=== PATIENT | female | born 1935 | race Caucasian/White ===

== ENCOUNTER 2017-10-25 06:30 | Inpatient (IN) ==
[2017-10-25] MEDS ORDERED: SODIUM CHLORIDE 0.9% 500 ML IV STA (06:49)
[2017-10-25 07:00] LABS: Basophils % 0.4 % (0.0-0.8); Eosinophils # 0.2 10*3/uL (0.0-0.87); Eosinophils % 1.5 % (0.00-10.9); Hematocrit 32.9 VOL% (35.7-47.0); Hemoglobin 10.7 GM/DL (12.0-16.0); Immature Granulocytes % 0.6 %; Immature Granulocytes Absolute 0.06 #; Lymphocytes # 0.7 10*3/uL (1.4-4.0); Lymphocytes % 7.2 % (21.3-54.2); Mean Corpuscular HGB Conc 32.5 GM/DL (32-36); Mean Corpuscular Hemoglobin 31 PG (27-34); Mean Corpuscular Volume 95.6 FL (87-102); Mean Platelet Volume 9.9 FL (9.6-12.0); Monocytes # 0.9 10*3/uL (0.11-0.8); Neutrophils % 81.3 % (38.7-73.9); Platelet Count 242 T/CUMM (130-400); Red Blood Count 3.44 MC/CUMM (3.8-5.5); Red Cell Distribution Width 14.1 % (9.3-17.3); White Blood Count 9.8 T/CUMM (4-12)
[2017-10-25] MEDS ORDERED: ALBUTEROL 2.5 MG/3 ML NEB RESP TX STA (07:06)
[2017-10-25 07:10] LABS: PT Patient Result 10.1 SECS; Partial Thromboplastin Time 37.6 SECS (0-40)
[2017-10-25 07:19] LABS: Bilirubin,Total 0.7 MG/DL (0.2-1.0); Calcium 9.6 MG/DL (8.5-10.1); Osmolality,Calculated 289.3 MOS/KG (273-304); Potassium 3.5 MMOL/L (3.5-5.1); Total Protein 6.4 G/DL (6.4-8.3); Troponin I Only 0.042 NG/ML (0.00-0.045)
[2017-10-25 07:28] LABS: ABG Base Excess 4.2 MMOL/L (-2.5-2.5); ABG HCO3 30.2 MMOL/L (20-26); ABG Oxygen Saturation 90.1 % (95-100); ABG PH 7.382 (7.35-7.45); ABG PO2 66.7 MM HG (80-95); ABG TCO2 31.8 MMOL/L (23-27)
[2017-10-25 07:35] LABS: Apearance,Urine CLEAR (Clear); Bacteria,Urine Occasional /HPF (Few); Bilirubin,Urine Negative (Negative); Blood, Urine Small mg/dL (Negative); Glucose,Urine (UA) Negative (Negative); Hyaline Casts,Urine 3 /LPF (0-3); Ketones,Urine Negative (Negative); Mucus,Urine Occasional /LPF (Occasional); Nitrite,Urine Negative (Negative); Protein,Urine 30 MG/DL; Urine Color Yellow (Yellow); Urine Specific Gravity 1.015 (1.001-1.035); Urine Urobilinogen < 2.0 EU/DL (0.2-1.0); WBC,Urine 4 /HPF (0-6)
[2017-10-25] MEDS ORDERED: LEVOFLOXACIN INJ 500 MG in PREMIX 1 EACH IV STA (07:53)
[2017-10-25 08:08] LABS: Barbiturates Screen,Urine Negative (Negative); Benzodiazepines Screen,Urine Negative (Negative); Cannabinoid Screen,Urine Negative (Negative); Opiate Screen,Urine Positive (Negative); Phencyclidine Screen,Urine Negative (Negative)
[2017-10-25] MEDS ORDERED: LEVOFLOXACIN INJ 100 ML IV ONE (08:42)
[2017-10-25] MEDS ORDERED: ALBUTEROL 2.5 MG/3 ML NEB RESP TX PRN (09:04)
[2017-10-25] MEDS: ALBUTEROL/IPRATROPIUM 3 ML NEB RESP TX SCH ×2 (12:55→20:30)
[2017-10-25] MEDS: OLANZapine 5 MG TABLET PO SCH (21:57)
[2017-10-26] MEDS: ALBUTEROL/IPRATROPIUM 3 ML NEB RESP TX SCH ×4 (00:58→19:08)
[2017-10-26] MEDS ORDERED: amLODIPine 5 MG TABLET PO SCH (06:00)
[2017-10-26] MEDS ORDERED: THEOPHYLLINE ER 100 MG TABLET PO SCH (06:00)
[2017-10-26 06:44] LABS: Basophils % 0.5 % (0.0-0.8); Eosinophils # 0.1 10*3/uL (0.0-0.87); Eosinophils % 1.5 % (0.00-10.9); Hematocrit 35.6 VOL% (35.7-47.0); Hemoglobin 12.1 GM/DL (12.0-16.0); Immature Granulocytes % 1.1 %; Immature Granulocytes Absolute 0.08 #; Lymphocytes # 1.4 10*3/uL (1.4-4.0); Lymphocytes % 19.2 % (21.3-54.2); Mean Corpuscular Hemoglobin 31 PG (27-34); Mean Corpuscular Volume 90.8 FL (87-102); Mean Platelet Volume 10.1 FL (9.6-12.0); Monocytes # 0.9 10*3/uL (0.11-0.8); Monocytes % 12.3 % (1.7-12.7); Neutrophils # 4.8 10*3/uL (1.4-7.4); Neutrophils % 65.4 % (38.7-73.9); Platelet Count 308 T/CUMM (130-400); Red Blood Count 3.92 MC/CUMM (3.8-5.5); Red Cell Distribution Width 14.1 % (9.3-17.3); White Blood Count 7.4 T/CUMM (4-12)
[2017-10-26] MEDS: THEOPHYLLINE ER (24 HR) 400 MG TABLET PO SCH (06:46)
[2017-10-26] MEDS: ASPIRIN EC 81 MG TABLET PO SCH (06:46)
[2017-10-26] MEDS: DOCUSATE SODIUM 100 MG CAPSULE PO SCH (06:46)
[2017-10-26] MEDS ORDERED: NITROGLYCERIN SL 0.4 MG TABLET SL PRN (07:07)
[2017-10-26] MEDS ORDERED: ASPIRIN CHEW 81 MG TABLET PO ONE ×2 (07:07→07:10)
[2017-10-26 07:13] LABS: Bilirubin,Total 0.9 MG/DL (0.2-1.0); Calcium 9.8 MG/DL (8.5-10.1); Potassium 3.1 MMOL/L (3.5-5.1); Total Protein 5.7 G/DL (6.4-8.3)
[2017-10-26] MEDS ORDERED: POTASSIUM CHLORIDE 20 MEQ TABLET PO ONE (07:34)
[2017-10-26 08:05] LABS: Basophils # 0.1 10*3/uL (0.0-0.2); Basophils % 0.6 % (0.0-0.8); Eosinophils # 0.1 10*3/uL (0.0-0.87); Eosinophils % 1.1 % (0.00-10.9); Hematocrit 35.1 VOL% (35.7-47.0); Hemoglobin 11.7 GM/DL (12.0-16.0); Immature Granulocytes % 1.1 %; Immature Granulocytes Absolute 0.09 #; Lymphocytes # 1.2 10*3/uL (1.4-4.0); Lymphocytes % 14.4 % (21.3-54.2); Mean Corpuscular HGB Conc 33.3 GM/DL (32-36); Mean Corpuscular Hemoglobin 31 PG (27-34); Mean Corpuscular Volume 93.1 FL (87-102); Mean Platelet Volume 10.3 FL (9.6-12.0); Monocytes # 0.9 10*3/uL (0.11-0.8); Monocytes % 11.2 % (1.7-12.7); Neutrophils # 5.7 10*3/uL (1.4-7.4); Neutrophils % 71.6 % (38.7-73.9); Platelet Count 307 T/CUMM (130-400); Red Blood Count 3.77 MC/CUMM (3.8-5.5); Red Cell Distribution Width 14.2 % (9.3-17.3)
[2017-10-26] MEDS ORDERED: NIFEdipine 10 MG CAPSULE PO PRN (08:05)
[2017-10-26 08:57] LABS: Bilirubin,Total 0.5 MG/DL (0.2-1.0); Calcium 9.9 MG/DL (8.5-10.1)
[2017-10-26 08:58] LABS: Troponin I Only 0.079 NG/ML (0.00-0.045)
[2017-10-26] MEDS ORDERED: DIGOXIN 0.125 MG TABLET PO SCH (09:00)
[2017-10-26] MEDS: ALUMINUM/MAGNES/SIMETH MAX STR 30 ML UDCUP PO SCH ×4 (09:21→20:41)
[2017-10-26] MEDS: LEVOFLOXACIN INJ 500 MG in PREMIX 1 EACH IV SCH (09:21)
[2017-10-26] MEDS: LISINOPRIL 20 MG TABLET PO SCH ×2 (09:26→09:45)
[2017-10-26] MEDS: NITROGLYCERIN 2% OINT 1 INCH/GM PACK TOP SCH ×3 (09:26→20:40)
[2017-10-26] MEDS: PANTOPRAZOLE 40 MG TABLET PO SCH (09:27)
[2017-10-26] MEDS: CARVEDILOL 25 MG TABLET PO SCH ×2 (09:27→22:40)
[2017-10-26] MEDS: POTASSIUM CHLORIDE 20 MEQ TABLET PO SCH ×3 (09:28→16:20)
[2017-10-26] MEDS ORDERED: amLODIPine 10 MG TABLET PO SCH (12:10)
[2017-10-26] MEDS: OLANZapine 5 MG TABLET PO SCH (22:40)
[2017-10-26] MEDS ORDERED: ALUMINUM/MAGNES/SIMETH MAX STR 30 ML UDCUP PO SCH (23:00)
[2017-10-27] MEDS: ALBUTEROL/IPRATROPIUM 3 ML NEB RESP TX SCH ×3 (00:34→13:44)
[2017-10-27] MEDS: NITROGLYCERIN 2% OINT 1 INCH/GM PACK TOP SCH ×3 (02:14→14:39)
[2017-10-27 06:00] LABS: Basophils # 0.1 10*3/uL (0.0-0.2); Basophils % 0.8 % (0.0-0.8); Eosinophils # 0.2 10*3/uL (0.0-0.87); Eosinophils % 3.2 % (0.00-10.9); Hemoglobin 10.8 GM/DL (12.0-16.0); Immature Granulocytes % 1.1 %; Immature Granulocytes Absolute 0.07 #; Lymphocytes # 1.5 10*3/uL (1.4-4.0); Lymphocytes % 24.1 % (21.3-54.2); Mean Corpuscular HGB Conc 33.8 GM/DL (32-36); Mean Corpuscular Hemoglobin 31 PG (27-34); Mean Platelet Volume 10.2 FL (9.6-12.0); Monocytes # 0.7 10*3/uL (0.11-0.8); Monocytes % 11.5 % (1.7-12.7); Neutrophils # 3.7 10*3/uL (1.4-7.4); Neutrophils % 59.3 % (38.7-73.9); Platelet Count 289 T/CUMM (130-400); Red Blood Count 3.48 MC/CUMM (3.8-5.5); Red Cell Distribution Width 14.3 % (9.3-17.3); White Blood Count 6.3 T/CUMM (4-12)
[2017-10-27 06:35] LABS: Calcium 9.8 MG/DL (8.5-10.1); Osmolality,Calculated 288.7 MOS/KG (273-304)
[2017-10-27] MEDS: LISINOPRIL 20 MG TABLET PO SCH (07:05)
[2017-10-27] MEDS: ASPIRIN EC 81 MG TABLET PO SCH (07:06)
[2017-10-27] MEDS: DOCUSATE SODIUM 100 MG CAPSULE PO SCH (07:06)
[2017-10-27] MEDS: THEOPHYLLINE ER (24 HR) 400 MG TABLET PO SCH (07:06)
[2017-10-27] MEDS: PANTOPRAZOLE 40 MG TABLET PO SCH (10:00)
[2017-10-27] MEDS: CARVEDILOL 25 MG TABLET PO SCH (10:00)
[2017-10-27] MEDS: LEVOFLOXACIN INJ 500 MG in PREMIX 1 EACH IV SCH (10:00)
[2017-10-27 12:54] VITALS: BP 105/68
[2017-10-27] MEDS ORDERED: SULFAMETHOX/TRIMETHOPRIM 800-160 MG TABLET PO SCH (21:00)
== END 2017-10-27 15:56 | DRG 948 ==
LOC: EDUNIT# → EDBD → N.ED 06:30 → N.EDINP 08:12 → N.5E 14:48
PROVIDERS: ADMIT Internal Medicine; ATTEND Internal Medicine

== ENCOUNTER 2018-01-10 00:12 | Inpatient (IN) ==
[2018-01-10 02:34] LABS: Basophils # 0.1 10*3/uL (0.0-0.2); Basophils % 0.5 % (0.0-0.8); Eosinophils # 0.2 10*3/uL (0.0-0.87); Eosinophils % 1.4 % (0.00-10.9); Hematocrit 37.3 VOL% (35.7-47.0); Hemoglobin 11.8 GM/DL (12.0-16.0); Immature Granulocytes % 0.6 %; Immature Granulocytes Absolute 0.07 #; Lymphocytes # 1.1 10*3/uL (1.4-4.0); Lymphocytes % 8.8 % (21.3-54.2); Mean Corpuscular HGB Conc 31.6 GM/DL (32-36); Mean Corpuscular Hemoglobin 31 PG (27-34); Mean Corpuscular Volume 97.1 FL (87-102); Mean Platelet Volume 11.3 FL (9.6-12.0); Monocytes # 1.1 10*3/uL (0.11-0.8); Monocytes % 8.4 % (1.7-12.7); Neutrophils % 80.3 % (38.7-73.9); Platelet Count 183 T/CUMM (130-400); Red Blood Count 3.84 MC/CUMM (3.8-5.5); Red Cell Distribution Width 14.3 % (9.3-17.3); White Blood Count 12.5 T/CUMM (4-12)
[2018-01-10 02:44] LABS: Albumin 3.5 G/DL (3.4-5.0); Bilirubin,Total 0.5 MG/DL (0.2-1.0); Calcium 9.6 MG/DL (8.5-10.1); Osmolality,Calculated 287.1 MOS/KG (273-304); Potassium 3.6 MMOL/L (3.5-5.1); Total Protein 6.5 G/DL (6.4-8.3)
[2018-01-10] MEDS ORDERED: ACETAMINOPHEN 325 MG TABLET PO PRN (04:30)
[2018-01-10] MEDS ORDERED: ONDANSETRON 4 MG/2 ML VIAL IV PRN (04:30)
[2018-01-10 04:32] LABS: Apearance,Urine CLEAR (Clear); Bacteria,Urine Few /HPF (Few); Bilirubin,Urine Negative (Negative); Blood, Urine Negative (Negative); Glucose,Urine (UA) Negative (Negative); Ketones,Urine Negative (Negative); Nitrite,Urine Negative (Negative); Protein,Urine 100 MG/DL; Urine Color Yellow (Yellow); Urine Specific Gravity 1.014 (1.001-1.035); Urine Urobilinogen < 2.0 EU/DL (0.2-1.0); WBC,Urine 17 /HPF (0-6)
[2018-01-10] MEDS ORDERED: ALBUTEROL/IPRATROPIUM 3 ML NEB RESP TX PRN (04:32)
[2018-01-10] MEDS: SODIUM CHLORIDE 0.9% 1,000 ML IV SCH (06:10)
[2018-01-10] MEDS: LEVOFLOXACIN INJ 750 MG in PREMIX 1 EACH IV SCH (06:15)
[2018-01-10] MEDS: methylPREDNISolone SOD SUC 40 MG/1 ML VIAL IV SCH ×2 (09:55→16:37)
[2018-01-10] MEDS: PANTOPRAZOLE 40 MG TABLET PO SCH (09:56)
[2018-01-10] MEDS: THEOPHYLLINE ER (24 HR) 400 MG TABLET PO SCH (09:56)
[2018-01-10] MEDS: amLODIPine 10 MG TABLET PO SCH (09:56)
[2018-01-10] MEDS: CARVEDILOL 25 MG TABLET PO SCH ×2 (09:56→21:47)
[2018-01-10] MEDS: OXYBUTYNIN XL 5 MG TABLET PO SCH (09:56)
[2018-01-10] MEDS: ASPIRIN EC 81 MG TABLET PO SCH (09:56)
[2018-01-10] MEDS: DULoxetine 30 MG CAPSULE PO SCH ×2 (09:56→21:46)
[2018-01-10] MEDS: ENOXAPARIN 40 MG/0.4 ML SYRINGE SUBCUT SCH (09:57)
[2018-01-10] MEDS: SIMVASTATIN 20 MG TABLET PO SCH (09:57)
[2018-01-10] MEDS: DIGOXIN 0.125 MG TABLET PO SCH (13:33)
[2018-01-10] MEDS: OLANZapine 5 MG TABLET PO SCH (21:48)
[2018-01-11] MEDS: methylPREDNISolone SOD SUC 40 MG/1 ML VIAL IV SCH ×3 (00:17→17:39)
[2018-01-11] MEDS: SODIUM CHLORIDE 0.9% 1,000 ML IV SCH (03:15)
[2018-01-11] MEDS: LEVOFLOXACIN INJ 750 MG in PREMIX 1 EACH IV SCH (05:28)
[2018-01-11 06:28] LABS: Basophils % 0.1 % (0.0-0.8); Hematocrit 33.1 VOL% (35.7-47.0); Hemoglobin 11.1 GM/DL (12.0-16.0); Immature Granulocytes % 1.1 %; Lymphocytes # 0.7 10*3/uL (1.4-4.0); Mean Corpuscular HGB Conc 33.5 GM/DL (32-36); Mean Corpuscular Hemoglobin 32 PG (27-34); Mean Platelet Volume 10.6 FL (9.6-12.0); Monocytes # 0.2 10*3/uL (0.11-0.8); Monocytes % 2.4 % (1.7-12.7); Neutrophils # 7.9 10*3/uL (1.4-7.4); Neutrophils % 88.4 % (38.7-73.9); Platelet Count 199 T/CUMM (130-400); Red Blood Count 3.52 MC/CUMM (3.8-5.5)
[2018-01-11 06:51] LABS: Calcium 9.3 MG/DL (8.5-10.1); Potassium 3.6 MMOL/L (3.5-5.1)
[2018-01-11] MEDS: ENOXAPARIN 40 MG/0.4 ML SYRINGE SUBCUT SCH (10:50)
[2018-01-11] MEDS: OXYBUTYNIN XL 5 MG TABLET PO SCH (10:51)
[2018-01-11] MEDS: THEOPHYLLINE ER (24 HR) 400 MG TABLET PO SCH (10:51)
[2018-01-11] MEDS: DULoxetine 30 MG CAPSULE PO SCH ×2 (10:51→20:38)
[2018-01-11] MEDS: PANTOPRAZOLE 40 MG TABLET PO SCH (10:52)
[2018-01-11] MEDS: SIMVASTATIN 20 MG TABLET PO SCH (10:52)
[2018-01-11] MEDS: CARVEDILOL 25 MG TABLET PO SCH ×2 (10:52→20:38)
[2018-01-11] MEDS: ASPIRIN EC 81 MG TABLET PO SCH (10:52)
[2018-01-11] MEDS: amLODIPine 10 MG TABLET PO SCH (10:52)
[2018-01-11] MEDS: DIGOXIN 0.125 MG TABLET PO SCH (14:51)
[2018-01-11] MEDS: OLANZapine 5 MG TABLET PO SCH (20:38)
[2018-01-12] MEDS: methylPREDNISolone SOD SUC 40 MG/1 ML VIAL IV SCH ×3 (00:53→21:51)
[2018-01-12] MEDS: LEVOFLOXACIN INJ 750 MG in PREMIX 1 EACH IV SCH (05:42)
[2018-01-12] MEDS: SODIUM CHLORIDE 0.9% 1,000 ML IV SCH ×2 (10:41→16:52)
[2018-01-12] MEDS: CARVEDILOL 25 MG TABLET PO SCH ×2 (10:42→21:50)
[2018-01-12] MEDS: THEOPHYLLINE ER (24 HR) 400 MG TABLET PO SCH (10:43)
[2018-01-12] MEDS: ASPIRIN EC 81 MG TABLET PO SCH (10:43)
[2018-01-12] MEDS: PANTOPRAZOLE 40 MG TABLET PO SCH (10:43)
[2018-01-12] MEDS: DULoxetine 30 MG CAPSULE PO SCH ×2 (10:43→21:50)
[2018-01-12] MEDS: OXYBUTYNIN XL 5 MG TABLET PO SCH (10:44)
[2018-01-12] MEDS: ENOXAPARIN 40 MG/0.4 ML SYRINGE SUBCUT SCH (10:44)
[2018-01-12] MEDS: amLODIPine 10 MG TABLET PO SCH (10:44)
[2018-01-12] MEDS: SIMVASTATIN 20 MG TABLET PO SCH (10:44)
[2018-01-12] MEDS: cefTRIAXone 1,000 MG in SYRINGE 1 EACH IV SCH (10:50)
[2018-01-12] MEDS: DIGOXIN 0.125 MG TABLET PO SCH (14:03)
[2018-01-12] MEDS ORDERED: LORazepam 2 MG/1 ML VIAL IV PRN ×2 (14:05)
[2018-01-12] MEDS ORDERED: ZIPRASIDONE 20 MG/1 ML VIAL IM PRN (15:14)
[2018-01-12] MEDS: OLANZapine 5 MG TABLET PO SCH (21:50)
[2018-01-13] MEDS: methylPREDNISolone SOD SUC 40 MG/1 ML VIAL IV SCH (05:52)
[2018-01-13] MEDS: OXYBUTYNIN XL 5 MG TABLET PO SCH (09:24)
[2018-01-13] MEDS: THEOPHYLLINE ER (24 HR) 400 MG TABLET PO SCH (09:24)
[2018-01-13] MEDS: DULoxetine 30 MG CAPSULE PO SCH (09:24)
[2018-01-13] MEDS: SIMVASTATIN 20 MG TABLET PO SCH (09:25)
[2018-01-13] MEDS: cefTRIAXone 1,000 MG in SYRINGE 1 EACH IV SCH (09:25)
[2018-01-13] MEDS: amLODIPine 10 MG TABLET PO SCH (09:25)
[2018-01-13] MEDS: ASPIRIN EC 81 MG TABLET PO SCH (09:25)
[2018-01-13] MEDS: CARVEDILOL 25 MG TABLET PO SCH (09:25)
[2018-01-13] MEDS: PANTOPRAZOLE 40 MG TABLET PO SCH (09:25)
[2018-01-13] MEDS: ENOXAPARIN 40 MG/0.4 ML SYRINGE SUBCUT SCH (09:25)
[2018-01-13] MEDS ORDERED: fentaNYL 12 MCG/HR PATCH TRANSDERM SCH (10:30)
[2018-01-13 11:08] VITALS: BP 125/58
== END 2018-01-13 11:00 | DRG 194 ==
LOC: EDBD → EDUNIT# → N.ED 00:12 → N.EDINP 04:30 → N.5E 05:15

== ENCOUNTER 2018-07-24 01:49 | Inpatient (IN) ==
[2018-07-24] MEDS ORDERED: CEFEPIME 2,000 MG in SODIUM CHLORIDE 0.9% 100 ML IV STA (01:58)
[2018-07-24] MEDS ORDERED: VANCOMYCIN INJ 1,000 MG in SODIUM CHLORIDE 0.9% 250 ML IV STA (01:59)
[2018-07-24 02:18] LABS: Basophils # 0.1 10*3/uL (0.0-0.2); Basophils % 0.9 % (0.0-0.8); Hematocrit 35.1 VOL% (35.7-47.0); Hemoglobin 11.3 GM/DL (12.0-16.0); Immature Granulocytes % 2.1 %; Immature Granulocytes Absolute 0.32 #; Lymphocytes # 0.9 10*3/uL (1.4-4.0); Lymphocytes % 6.1 % (21.3-54.2); Mean Corpuscular HGB Conc 32.2 GM/DL (32-36); Mean Corpuscular Hemoglobin 31 PG (27-34); Mean Corpuscular Volume 97.2 FL (87-102); Mean Platelet Volume 9.3 FL (9.6-12.0); Monocytes # 0.5 10*3/uL (0.11-0.8); Monocytes % 3.1 % (1.7-12.7); NRBC # 0.05 10*3/uL; Neutrophils # 13.2 10*3/uL (1.4-7.4); Neutrophils % 87.8 % (38.7-73.9); Platelet Count 242 T/CUMM (130-400); Red Blood Count 3.61 MC/CUMM (3.8-5.5); Red Cell Distribution Width 15.7 % (9.3-17.3)
[2018-07-24] MEDS ORDERED: SODIUM CHLORIDE 0.9% 100 ML IV ONE (02:25)
[2018-07-24] MEDS ORDERED: CEFEPIME 1,000 MG VIAL ONE (02:25)
[2018-07-24] MEDS ORDERED: CEFEPIME 2,000 MG VIAL ONE (02:26)
[2018-07-24] MEDS ORDERED: SODIUM CHLORIDE 0.9% 1,000 ML IV STA (02:29)
[2018-07-24 02:42] LABS: Lactic Acid 1.7 MMOL/L (0.4-2.0)
[2018-07-24 02:46] LABS: Bilirubin,Total 0.7 MG/DL (0.2-1.0); Calcium 9.2 MG/DL (8.5-10.1); Osmolality,Calculated 296.3 MOS/KG (273-304); Potassium 4.3 MMOL/L (3.5-5.1); Total Protein 5.9 G/DL (6.4-8.3)
[2018-07-24 02:58] LABS: Band Neutrophils 12 % (0-10); Lymphocytes 9 % (20-55); Metamyelocytes 5 %; Segmented Neutrophils 69 % (50-85)
[2018-07-24 02:59] LABS: Platelet Estimate Normal
[2018-07-24 03:00] LABS: Total Cells Counted 100
[2018-07-24 03:03] LABS: Apearance,Urine Slightly Hazy (Clear); Bacteria,Urine Many /HPF (Few); Bilirubin,Urine Negative (Negative); Blood, Urine Small mg/dL (Negative); Glucose,Urine (UA) Negative (Negative); Ketones,Urine Negative (Negative); Nitrite,Urine Positive (Negative); Protein,Urine 100 MG/DL; RBC,Urine 3 /HPF (0-4); Squamous Epithelial Cell,Urine Occasional /HPF (0-10); Urine Color Yellow (Yellow); Urine Specific Gravity 1.021 (1.001-1.035); Urine Urobilinogen < 2.0 EU/DL (0.2-1.0); WBC,Urine 77 /HPF (0-6)
[2018-07-24] MEDS ORDERED: NOREPINEPHRINE 8 MG in SODIUM CHLORIDE 0.9% 242 ML IV PRN (03:33)
[2018-07-24] MEDS ORDERED: ONDANSETRON 4 MG/2 ML VIAL IV PRN (05:21)
[2018-07-24] MEDS ORDERED: ALBUTEROL 2.5 MG/3 ML NEB RESP TX PRN (05:21)
[2018-07-24] MEDS ORDERED: AZITHROMYCIN INJ 500 MG in SODIUM CHLORIDE 0.9% 250 ML IV SCH (05:30)
[2018-07-24 05:45] LABS: ABG Base Excess -1.8 MMOL/L (-2.5-2.5); ABG HCO3 22.8 MMOL/L (20-26); ABG Oxygen Saturation 94.9 % (95-100); ABG PCO2 52.6 MM HG (35-48); ABG PH 7.293 (7.35-7.45); ABG PO2 83.1 MM HG (80-95); Allen Test Positive
[2018-07-24] MEDS ORDERED: MORPHINE 4 MG/1 ML VIAL IV ONE (06:22)
[2018-07-24] MEDS ORDERED: MORPHINE 4 MG/1 ML VIAL ONE (06:25)
[2018-07-24] MEDS: SODIUM CHLORIDE 0.9% 1,000 ML IV SCH ×2 (06:29→23:43)
[2018-07-24] MEDS ORDERED: LEVOFLOXACIN INJ 750 MG in PREMIX 1 EACH IV SCH (06:30)
[2018-07-24] MEDS ORDERED: NOREPINEPHRINE 4 MG/4 ML VIAL IV ONE (06:34)
[2018-07-24] MEDS: ALBUTEROL/IPRATROPIUM 3 ML NEB RESP TX SCH ×3 (06:40→19:23)
[2018-07-24] MEDS: ENOXAPARIN 30 MG/0.3 ML SYRINGE SUBCUT SCH (06:41)
[2018-07-24] MEDS ORDERED: MORPHINE 4 MG/1 ML VIAL IV PRN (08:23)
[2018-07-24] MEDS: fentaNYL 12 MCG/HR PATCH TRANSDERM SCH (09:21)
[2018-07-24] MEDS: DIGOXIN 0.125 MG TABLET PO SCH (09:21)
[2018-07-24] MEDS: OXcarbazepine 300 MG TABLET PO SCH ×2 (09:22→21:31)
[2018-07-24] MEDS: PIPERACILLIN/TAZOBACTAM 3,375 MG in SODIUM CHLORIDE 0.9% 100 ML IV SCH ×2 (09:22→17:23)
[2018-07-24] MEDS: LORazepam 2 MG/1 ML VIAL IV PRN ×3 (12:27→23:18)
[2018-07-24] MEDS: methylPREDNISolone SOD SUC 125 MG/2 ML VIAL IV SCH ×2 (12:36→21:54)
[2018-07-24] MEDS: traZODone 50 MG TABLET PO SCH (21:31)
[2018-07-24] MEDS: OLANZapine 5 MG TABLET PO SCH (21:32)
[2018-07-24] MEDS: MORPHINE 4 MG/1 ML VIAL IV PRN (22:43)
[2018-07-24] MEDS ORDERED: HALOPERIDOL 5 MG/ML AMP IM PRN (23:41)
[2018-07-25] MEDS: ALBUTEROL/IPRATROPIUM 3 ML NEB RESP TX SCH ×4 (01:34→19:07)
[2018-07-25] MEDS: PIPERACILLIN/TAZOBACTAM 3,375 MG in SODIUM CHLORIDE 0.9% 100 ML IV SCH ×3 (01:47→16:34)
[2018-07-25 03:50] LABS: Allen Test Positive; Pt O2 Delivery Device BIPAP
[2018-07-25 03:52] LABS: ABG Base Excess -3.8 MMOL/L (-2.5-2.5); ABG HCO3 21.2 MMOL/L (20-26); ABG Oxygen Saturation 96.8 % (95-100); ABG PCO2 39.2 MM HG (35-48); ABG PH 7.347 (7.35-7.45); ABG PO2 95.4 MM HG (80-95)
[2018-07-25] MEDS: MORPHINE 4 MG/1 ML VIAL IV PRN ×4 (04:20→20:13)
[2018-07-25 04:37] LABS: Basophils % 0.1 % (0.0-0.8); Hematocrit 39.4 VOL% (35.7-47.0); Hemoglobin 12.6 GM/DL (12.0-16.0); Immature Granulocytes % 11.9 %; Immature Granulocytes Absolute 2.34 #; Lymphocytes # 1.4 10*3/uL (1.4-4.0); Lymphocytes % 7.1 % (21.3-54.2); Mean Corpuscular Hemoglobin 31 PG (27-34); Mean Corpuscular Volume 96.6 FL (87-102); Mean Platelet Volume 9.6 FL (9.6-12.0); Monocytes # 0.5 10*3/uL (0.11-0.8); Monocytes % 2.5 % (1.7-12.7); NRBC # 0.06 10*3/uL; Neutrophils # 15.5 10*3/uL (1.4-7.4); Neutrophils % 78.4 % (38.7-73.9); Platelet Count 292 T/CUMM (130-400); Red Blood Count 4.08 MC/CUMM (3.8-5.5); Red Cell Distribution Width 16.3 % (9.3-17.3); White Blood Count 19.7 T/CUMM (4-12)
[2018-07-25 04:49] LABS: Calcium 9.5 MG/DL (8.5-10.1); Osmolality,Calculated 307.6 MOS/KG (273-304)
[2018-07-25 06:19] LABS: Band Neutrophils 7 % (0-10); Lymphocytes 9 % (20-55); Myelocytes 1 %; Segmented Neutrophils 77 % (50-85); Total Cells Counted 100
[2018-07-25 06:20] LABS: Anisocytosis 1+
[2018-07-25 06:21] LABS: Ovalocytes Few; Platelet Estimate Adequate
[2018-07-25] MEDS: methylPREDNISolone SOD SUC 125 MG/2 ML VIAL IV SCH ×3 (06:29→22:43)
[2018-07-25] MEDS: ENOXAPARIN 30 MG/0.3 ML SYRINGE SUBCUT SCH (06:29)
[2018-07-25] MEDS: DIGOXIN 0.125 MG TABLET PO SCH (08:43)
[2018-07-25] MEDS: OXcarbazepine 300 MG TABLET PO SCH ×2 (08:43→20:15)
[2018-07-25] MEDS ORDERED: cefTRIAXone 1,000 MG in SYRINGE 1 EACH IV SCH (09:30)
[2018-07-25] MEDS: SODIUM CHLORIDE 0.9% 1,000 ML IV SCH (15:00)
[2018-07-25] MEDS ORDERED: LABETALOL 20 MG/4 ML SYRINGE IV ONE (15:35)
[2018-07-25] MEDS: SODIUM CHLORIDE 0.45% 1,000 ML IV SCH (17:16)
[2018-07-25] MEDS ORDERED: CARVEDILOL 3.125 MG TABLET ONE (19:40)
[2018-07-25] MEDS: CARVEDILOL 6.25 MG TABLET PO SCH (19:45)
[2018-07-25] MEDS: OLANZapine 5 MG TABLET PO SCH (20:14)
[2018-07-25] MEDS: traZODone 50 MG TABLET PO SCH (20:15)
[2018-07-25] MEDS: DOCUSATE SODIUM 100 MG CAPSULE PO PRN (20:15)
[2018-07-25] MEDS: ACETAMINOPHEN 325 MG TABLET PO PRN (20:41)
[2018-07-25] MEDS: LABETALOL 20 MG/4 ML SYRINGE IV PRN (20:44)
[2018-07-25] MEDS ORDERED: CARVEDILOL 6.25 MG TABLET PO SCH (21:00)
[2018-07-26] MEDS: PIPERACILLIN/TAZOBACTAM 3,375 MG in SODIUM CHLORIDE 0.9% 100 ML IV SCH ×2 (00:36→09:30)
[2018-07-26] MEDS: ALBUTEROL/IPRATROPIUM 3 ML NEB RESP TX SCH ×4 (00:45→19:50)
[2018-07-26 04:34] LABS: ABG Base Excess 0.3 MMOL/L (-2.5-2.5); ABG HCO3 24.6 MMOL/L (20-26); ABG Oxygen Saturation 93.6 % (95-100); ABG PCO2 44.8 MM HG (35-48); ABG PH 7.369 (7.35-7.45); ABG PO2 73.7 MM HG (80-95); ABG TCO2 23.1 MMOL/L (23-27); Allen Test Positive
[2018-07-26 05:26] LABS: Hemoglobin 11.6 GM/DL (12.0-16.0); Immature Granulocytes % 24.2 %; Immature Granulocytes Absolute 3.18 #; Lymphocytes # 1.3 10*3/uL (1.4-4.0); Lymphocytes % 9.9 % (21.3-54.2); Mean Corpuscular HGB Conc 32.2 GM/DL (32-36); Mean Corpuscular Hemoglobin 31 PG (27-34); Mean Corpuscular Volume 95.2 FL (87-102); Mean Platelet Volume 9.7 FL (9.6-12.0); Monocytes # 0.4 10*3/uL (0.11-0.8); Monocytes % 2.9 % (1.7-12.7); NRBC # 0.06 10*3/uL; Neutrophils # 8.3 10*3/uL (1.4-7.4); Platelet Count 222 T/CUMM (130-400); Red Blood Count 3.78 MC/CUMM (3.8-5.5); Red Cell Distribution Width 16.4 % (9.3-17.3); White Blood Count 13.2 T/CUMM (4-12)
[2018-07-26 05:57] LABS: Osmolality,Calculated 320.6 MOS/KG (273-304); Potassium 3.7 MMOL/L (3.5-5.1)
[2018-07-26] MEDS ORDERED: VANCOMYCIN INJ 750 MG in SODIUM CHLORIDE 0.9% 250 ML IV SCH (06:00)
[2018-07-26 06:18] LABS: Atypical Lymphocytes Few; Hypochromasia Slight; Lymphocytes 22 % (20-55); Platelet Estimate Adequate; Segmented Neutrophils 73 % (50-85); Total Cells Counted 100
[2018-07-26] MEDS: ENOXAPARIN 30 MG/0.3 ML SYRINGE SUBCUT SCH (06:25)
[2018-07-26] MEDS: methylPREDNISolone SOD SUC 125 MG/2 ML VIAL IV SCH (06:25)
[2018-07-26] MEDS: SODIUM CHLORIDE 0.45% 1,000 ML IV SCH (06:39)
[2018-07-26] MEDS: DIGOXIN 0.125 MG TABLET PO SCH (09:29)
[2018-07-26] MEDS: OXcarbazepine 300 MG TABLET PO SCH ×2 (09:29→21:01)
[2018-07-26] MEDS: CARVEDILOL 6.25 MG TABLET PO SCH (09:30)
[2018-07-26] MEDS: DEXTROSE 5% 1,000 ML IV SCH (11:03)
[2018-07-26] MEDS: MEROPENEM 500 MG in SODIUM CHLORIDE 0.9% 100 ML IV SCH ×2 (11:03→18:00)
[2018-07-26] MEDS: MORPHINE 4 MG/1 ML VIAL IV PRN ×4 (12:28→21:03)
[2018-07-26] MEDS: methylPREDNISolone SOD SUC 40 MG/1 ML VIAL IV SCH ×2 (13:47→21:01)
[2018-07-26] MEDS: LABETALOL 20 MG/4 ML SYRINGE IV PRN (14:12)
[2018-07-26] MEDS ORDERED: CARVEDILOL 6.25 MG TABLET PO ONE (14:51)
[2018-07-26] MEDS: amLODIPine 10 MG TABLET PO SCH (16:07)
[2018-07-26] MEDS: CARVEDILOL 12.5 MG TABLET PO SCH (21:01)
[2018-07-26] MEDS: traZODone 50 MG TABLET PO SCH (21:01)
[2018-07-26] MEDS: OLANZapine 5 MG TABLET PO SCH (21:01)
[2018-07-27] MEDS: DEXTROSE 5% 1,000 ML IV SCH ×3 (00:48→20:03)
[2018-07-27] MEDS: ALBUTEROL/IPRATROPIUM 3 ML NEB RESP TX SCH ×4 (01:00→19:32)
[2018-07-27] MEDS: MEROPENEM 500 MG in SODIUM CHLORIDE 0.9% 100 ML IV SCH ×3 (02:05→18:00)
[2018-07-27 03:26] LABS: ABG Base Excess 6.2 MMOL/L (-2.5-2.5); ABG Oxygen Saturation 96.6 % (95-100); ABG PH 7.402 (7.35-7.45); ABG PO2 92.2 MM HG (80-95); ABG TCO2 28.6 MMOL/L (23-27); Allen Test Positive
[2018-07-27] MEDS: MORPHINE 4 MG/1 ML VIAL IV PRN ×2 (05:25→09:27)
[2018-07-27] MEDS: methylPREDNISolone SOD SUC 40 MG/1 ML VIAL IV SCH (05:31)
[2018-07-27] MEDS: ENOXAPARIN 30 MG/0.3 ML SYRINGE SUBCUT SCH (05:32)
[2018-07-27 05:52] LABS: Calcium 10.1 MG/DL (8.5-10.1); Osmolality,Calculated 305.4 MOS/KG (273-304); Potassium 3.3 MMOL/L (3.5-5.1)
[2018-07-27 06:09] LABS: Basophils % 0.1 % (0.0-0.8); Hemoglobin 12.3 GM/DL (12.0-16.0); Immature Granulocytes % 16.3 %; Immature Granulocytes Absolute 2.15 #; Lymphocytes # 1.4 10*3/uL (1.4-4.0); Lymphocytes % 10.6 % (21.3-54.2); Mean Corpuscular HGB Conc 32.4 GM/DL (32-36); Mean Corpuscular Hemoglobin 31 PG (27-34); Mean Corpuscular Volume 95.5 FL (87-102); Mean Platelet Volume 9.9 FL (9.6-12.0); Monocytes # 0.4 10*3/uL (0.11-0.8); Monocytes % 2.7 % (1.7-12.7); NRBC # 0.04 10*3/uL; Neutrophils # 9.3 10*3/uL (1.4-7.4); Neutrophils % 70.3 % (38.7-73.9); Platelet Count 181 T/CUMM (130-400); Red Blood Count 3.98 MC/CUMM (3.8-5.5); Red Cell Distribution Width 16.4 % (9.3-17.3); White Blood Count 13.2 T/CUMM (4-12)
[2018-07-27 06:12] LABS: Band Neutrophils 5 % (0-10); Lymphocytes 13 % (20-55); Myelocytes 1 %; Nucleated Red Blood Cells 2 (0-5); Segmented Neutrophils 74 % (50-85); Total Cells Counted 100
[2018-07-27 06:14] LABS: Anisocytosis 1+; Hypochromasia 1+; Platelet Estimate Adequate; Target Cells 2+
[2018-07-27] MEDS ORDERED: POTASSIUM CHLORIDE 20 MEQ/15 ML UDCUP PO ONE (08:30)
[2018-07-27] MEDS: OXcarbazepine 300 MG TABLET PO SCH ×2 (09:04→22:58)
[2018-07-27] MEDS: fentaNYL 12 MCG/HR PATCH TRANSDERM SCH (09:04)
[2018-07-27] MEDS: amLODIPine 10 MG TABLET PO SCH (09:04)
[2018-07-27] MEDS: DIGOXIN 0.125 MG TABLET PO SCH (09:05)
[2018-07-27] MEDS: CARVEDILOL 12.5 MG TABLET PO SCH ×2 (09:05→22:58)
[2018-07-27] MEDS: VANCOMYCIN INJ 750 MG in SODIUM CHLORIDE 0.9% 250 ML IV SCH (13:44)
[2018-07-27] MEDS: SKIN HEALING OINT (AQUAPHOR) 50 GM TUBE TOP SCH (14:39)
[2018-07-27] MEDS: methylPREDNISolone SOD SUC 125 MG/2 ML VIAL IV SCH (17:50)
[2018-07-27] MEDS: OLANZapine 5 MG TABLET PO SCH (22:58)
[2018-07-27] MEDS: traZODone 50 MG TABLET PO SCH (22:58)
[2018-07-28] MEDS: ALBUTEROL/IPRATROPIUM 3 ML NEB RESP TX SCH ×5 (01:19→23:59)
[2018-07-28] MEDS: MORPHINE 4 MG/1 ML VIAL IV PRN ×4 (02:21→18:27)
[2018-07-28] MEDS: DEXTROSE 5% 1,000 ML IV SCH ×3 (03:14→15:01)
[2018-07-28] MEDS: MEROPENEM 500 MG in SODIUM CHLORIDE 0.9% 100 ML IV SCH ×3 (03:41→18:28)
[2018-07-28 04:56] LABS: ABG Base Excess 9.9 MMOL/L (-2.5-2.5); ABG HCO3 33.6 MMOL/L (20-26); ABG Oxygen Saturation 94.9 % (95-100); ABG PCO2 46.7 MM HG (35-48); ABG PH 7.483 (7.35-7.45); ABG PO2 73.1 MM HG (80-95); ABG TCO2 30.2 MMOL/L (23-27); Allen Test Positive
[2018-07-28] MEDS: LABETALOL 20 MG/4 ML SYRINGE IV PRN ×2 (05:48→14:42)
[2018-07-28] MEDS: ENOXAPARIN 30 MG/0.3 ML SYRINGE SUBCUT SCH (05:53)
[2018-07-28] MEDS: methylPREDNISolone SOD SUC 125 MG/2 ML VIAL IV SCH ×2 (05:53→18:28)
[2018-07-28 06:19] LABS: Basophils # 0.2 10*3/uL (0.0-0.2); Basophils % 0.8 % (0.0-0.8); Hematocrit 40.3 VOL% (35.7-47.0); Hemoglobin 13.5 GM/DL (12.0-16.0); Immature Granulocytes % 8.1 %; Immature Granulocytes Absolute 1.72 #; Lymphocytes # 1.6 10*3/uL (1.4-4.0); Lymphocytes % 7.7 % (21.3-54.2); Mean Corpuscular HGB Conc 33.5 GM/DL (32-36); Mean Corpuscular Hemoglobin 31 PG (27-34); Mean Corpuscular Volume 93.3 FL (87-102); Mean Platelet Volume 10.9 FL (9.6-12.0); Monocytes # 0.9 10*3/uL (0.11-0.8); Monocytes % 4.3 % (1.7-12.7); NRBC # 0.03 10*3/uL; Neutrophils # 16.8 10*3/uL (1.4-7.4); Neutrophils % 79.1 % (38.7-73.9); Red Blood Count 4.32 MC/CUMM (3.8-5.5); Red Cell Distribution Width 15.6 % (9.3-17.3)
[2018-07-28 06:20] LABS: Platelet Count 126 T/CUMM (130-400); White Blood Count 21.3 T/CUMM (4-12)
[2018-07-28 06:33] LABS: Calcium 9.6 MG/DL (8.5-10.1); Osmolality,Calculated 298.7 MOS/KG (273-304); Potassium 3.1 MMOL/L (3.5-5.1)
[2018-07-28 07:03] LABS: Band Neutrophils 2 % (0-10); Hypochromasia Slight; Lymphocytes 6 % (20-55); Platelet Estimate Decreased; Segmented Neutrophils 88 % (50-85); Total Cells Counted 100
[2018-07-28] MEDS: amLODIPine 10 MG TABLET PO SCH (09:19)
[2018-07-28] MEDS: DIGOXIN 0.125 MG TABLET PO SCH (09:19)
[2018-07-28] MEDS: CARVEDILOL 12.5 MG TABLET PO SCH ×2 (09:19→22:07)
[2018-07-28] MEDS: OXcarbazepine 300 MG TABLET PO SCH ×2 (09:19→22:07)
[2018-07-28] MEDS: POTASSIUM CHLORIDE 20 MEQ/15 ML UDCUP PO SCH ×3 (09:45→16:59)
[2018-07-28] MEDS: MAGNESIUM SULFATE 1 GM/2 ML VIAL IM SCH ×2 (10:25→18:28)
[2018-07-28] MEDS: SKIN HEALING OINT (AQUAPHOR) 50 GM TUBE TOP SCH (10:25)
[2018-07-28] MEDS: VANCOMYCIN INJ 750 MG in SODIUM CHLORIDE 0.9% 250 ML IV SCH (10:26)
[2018-07-28] MEDS: acetaZOLAMIDE 250 MG TABLET PO SCH ×2 (14:17→22:06)
[2018-07-28] MEDS: MAGNESIUM CHLORIDE 64 MG TABLET PO SCH (22:06)
[2018-07-28] MEDS: OLANZapine 5 MG TABLET PO SCH (22:07)
[2018-07-28] MEDS: traZODone 50 MG TABLET PO SCH (22:07)
[2018-07-29] MEDS: MEROPENEM 500 MG in SODIUM CHLORIDE 0.9% 100 ML IV SCH ×3 (03:53→18:08)
[2018-07-29] MEDS: MORPHINE 4 MG/1 ML VIAL IV PRN ×2 (04:07→06:10)
[2018-07-29 04:40] LABS: Basophils # 0.1 10*3/uL (0.0-0.2); Basophils % 0.4 % (0.0-0.8); Hematocrit 36.4 VOL% (35.7-47.0); Hemoglobin 12.1 GM/DL (12.0-16.0); Immature Granulocytes % 6.5 %; Immature Granulocytes Absolute 1.28 #; Lymphocytes # 1.4 10*3/uL (1.4-4.0); Mean Corpuscular HGB Conc 33.2 GM/DL (32-36); Mean Corpuscular Hemoglobin 31 PG (27-34); Mean Corpuscular Volume 93.3 FL (87-102); Mean Platelet Volume 11.4 FL (9.6-12.0); Monocytes # 0.6 10*3/uL (0.11-0.8); Monocytes % 3.1 % (1.7-12.7); NRBC # 0.02 10*3/uL; Neutrophils # 16.3 10*3/uL (1.4-7.4); Platelet Count 70 T/CUMM (130-400); Red Cell Distribution Width 15.7 % (9.3-17.3); White Blood Count 19.6 T/CUMM (4-12)
[2018-07-29 04:56] LABS: Calcium 8.1 MG/DL (8.5-10.1); Potassium 3.5 MMOL/L (3.5-5.1)
[2018-07-29 05:08] LABS: Lymphocytes 4 % (20-55); Platelet Estimate Decreased; Polychromasia Few; Segmented Neutrophils 96 % (50-85); Total Cells Counted 100
[2018-07-29 05:15] LABS: ABG HCO3 27.9 MMOL/L (20-26); ABG Oxygen Saturation 95.7 % (95-100); ABG PCO2 38.8 MM HG (35-48); ABG PH 7.464 (7.35-7.45); ABG PO2 80.6 MM HG (80-95); ABG TCO2 23.9 MMOL/L (23-27); Allen Test Positive
[2018-07-29] MEDS: DEXTROSE 5% 1,000 ML IV SCH ×2 (06:10→20:30)
[2018-07-29] MEDS: methylPREDNISolone SOD SUC 125 MG/2 ML VIAL IV SCH ×2 (06:15→17:01)
[2018-07-29] MEDS: ENOXAPARIN 30 MG/0.3 ML SYRINGE SUBCUT SCH (06:18)
[2018-07-29] MEDS: ALBUTEROL/IPRATROPIUM 3 ML NEB RESP TX SCH ×3 (07:33→19:15)
[2018-07-29] MEDS: MAGNESIUM CHLORIDE 64 MG TABLET PO SCH ×2 (08:44→21:00)
[2018-07-29] MEDS: DIGOXIN 0.125 MG TABLET PO SCH (08:44)
[2018-07-29] MEDS: DOCUSATE SODIUM 100 MG CAPSULE PO PRN (08:45)
[2018-07-29] MEDS: amLODIPine 10 MG TABLET PO SCH (08:45)
[2018-07-29] MEDS: SKIN HEALING OINT (AQUAPHOR) 50 GM TUBE TOP SCH (08:46)
[2018-07-29] MEDS: CARVEDILOL 12.5 MG TABLET PO SCH ×2 (08:46→21:00)
[2018-07-29] MEDS: OXcarbazepine 300 MG TABLET PO SCH ×2 (08:46→21:00)
[2018-07-29] MEDS: acetaZOLAMIDE 250 MG TABLET PO SCH ×2 (09:54→21:00)
[2018-07-29] MEDS: ACETAMINOPHEN 325 MG TABLET PO PRN ×2 (09:55→16:53)
[2018-07-29] MEDS: VANCOMYCIN INJ 750 MG in SODIUM CHLORIDE 0.9% 250 ML IV SCH (10:14)
[2018-07-29] MEDS: OLANZapine 5 MG TABLET PO SCH (21:00)
[2018-07-30] MEDS: CARVEDILOL 12.5 MG TABLET PO SCH ×3 (00:36→21:43)
[2018-07-30] MEDS: acetaZOLAMIDE 250 MG TABLET PO SCH ×3 (00:36→21:42)
[2018-07-30] MEDS: traZODone 50 MG TABLET PO SCH ×2 (00:36→21:43)
[2018-07-30] MEDS: OXcarbazepine 300 MG TABLET PO SCH ×3 (00:37→21:42)
[2018-07-30] MEDS: MAGNESIUM CHLORIDE 64 MG TABLET PO SCH ×3 (00:37→21:43)
[2018-07-30] MEDS: OLANZapine 5 MG TABLET PO SCH ×2 (00:37→21:42)
[2018-07-30] MEDS: ALBUTEROL/IPRATROPIUM 3 ML NEB RESP TX SCH ×4 (01:20→20:16)
[2018-07-30] MEDS: MEROPENEM 500 MG in SODIUM CHLORIDE 0.9% 100 ML IV SCH ×3 (03:14→18:15)
[2018-07-30 04:52] LABS: Calcium 8.8 MG/DL (8.5-10.1); Osmolality,Calculated 281.8 MOS/KG (273-304); Potassium 3.8 MMOL/L (3.5-5.1)
[2018-07-30] MEDS: ACETAMINOPHEN 325 MG TABLET PO PRN ×3 (05:36→14:14)
[2018-07-30] MEDS: LABETALOL 20 MG/4 ML SYRINGE IV PRN ×4 (06:09→21:41)
[2018-07-30] MEDS: methylPREDNISolone SOD SUC 125 MG/2 ML VIAL IV SCH (06:09)
[2018-07-30] MEDS: ENOXAPARIN 30 MG/0.3 ML SYRINGE SUBCUT SCH (06:09)
[2018-07-30] MEDS: MORPHINE 4 MG/1 ML VIAL IV PRN ×3 (06:10→17:25)
[2018-07-30] MEDS: DIGOXIN 0.125 MG TABLET PO SCH (10:01)
[2018-07-30] MEDS: DOCUSATE SODIUM 100 MG CAPSULE PO PRN (10:02)
[2018-07-30] MEDS: amLODIPine 10 MG TABLET PO SCH (10:03)
[2018-07-30 10:15] LABS: Troponin I 0.062 NG/ML (0.00-0.045)
[2018-07-30] MEDS: methylPREDNISolone SOD SUC 40 MG/1 ML VIAL IV SCH (10:30)
[2018-07-30] MEDS: fentaNYL 12 MCG/HR PATCH TRANSDERM SCH (13:00)
[2018-07-30] MEDS: SKIN HEALING OINT (AQUAPHOR) 50 GM TUBE TOP SCH (13:02)
[2018-07-30] MEDS: DEXTROSE 5% 1,000 ML IV SCH (13:03)
[2018-07-30] MEDS: VANCOMYCIN INJ 750 MG in SODIUM CHLORIDE 0.9% 250 ML IV SCH (13:19)
[2018-07-31] MEDS: DEXTROSE 5% 1,000 ML IV SCH ×2 (00:06→22:10)
[2018-07-31] MEDS: MORPHINE 4 MG/1 ML VIAL IV PRN ×4 (00:11→18:44)
[2018-07-31] MEDS: ALBUTEROL/IPRATROPIUM 3 ML NEB RESP TX SCH ×4 (01:55→19:45)
[2018-07-31] MEDS: MEROPENEM 500 MG in SODIUM CHLORIDE 0.9% 100 ML IV SCH ×3 (03:15→18:12)
[2018-07-31] MEDS: ENOXAPARIN 30 MG/0.3 ML SYRINGE SUBCUT SCH (05:40)
[2018-07-31 05:44] LABS: Basophils # 0.1 10*3/uL (0.0-0.2); Basophils % 0.3 % (0.0-0.8); Eosinophils % 0.1 % (0.00-10.9); Hematocrit 37.9 VOL% (35.7-47.0); Hemoglobin 12.7 GM/DL (12.0-16.0); Immature Granulocytes % 4.4 %; Immature Granulocytes Absolute 1.05 #; Lymphocytes # 2.2 10*3/uL (1.4-4.0); Lymphocytes % 9.1 % (21.3-54.2); Mean Corpuscular HGB Conc 33.5 GM/DL (32-36); Mean Corpuscular Hemoglobin 31 PG (27-34); Mean Corpuscular Volume 91.1 FL (87-102); Mean Platelet Volume 12.8 FL (9.6-12.0); Monocytes # 1.1 10*3/uL (0.11-0.8); Monocytes % 4.7 % (1.7-12.7); Neutrophils # 19.6 10*3/uL (1.4-7.4); Neutrophils % 81.4 % (38.7-73.9); Platelet Count 177 T/CUMM (130-400); Red Blood Count 4.16 MC/CUMM (3.8-5.5); Red Cell Distribution Width 15.1 % (9.3-17.3); White Blood Count 24.1 T/CUMM (4-12)
[2018-07-31 06:05] LABS: Albumin 2.4 G/DL (3.4-5.0); Bilirubin,Total 0.9 MG/DL (0.2-1.0); Calcium 9.2 MG/DL (8.5-10.1); Osmolality,Calculated 279.8 MOS/KG (273-304); Potassium 3.8 MMOL/L (3.5-5.1)
[2018-07-31 06:12] LABS: Band Neutrophils 1 % (0-10); Lymphocytes 8 % (20-55); Segmented Neutrophils 88 % (50-85); Total Cells Counted 100
[2018-07-31 06:13] LABS: Microcytosis Slight; Ovalocytes Slight
[2018-07-31] MEDS: VANCOMYCIN INJ 750 MG in SODIUM CHLORIDE 0.9% 250 ML IV SCH (06:16)
[2018-07-31] MEDS: acetaZOLAMIDE 250 MG TABLET PO SCH ×2 (08:21→22:03)
[2018-07-31] MEDS: DIGOXIN 0.125 MG TABLET PO SCH (08:22)
[2018-07-31] MEDS: CARVEDILOL 12.5 MG TABLET PO SCH ×2 (08:22→22:02)
[2018-07-31] MEDS: OXcarbazepine 300 MG TABLET PO SCH ×2 (08:22→22:09)
[2018-07-31] MEDS: MAGNESIUM CHLORIDE 64 MG TABLET PO SCH ×2 (08:22→22:03)
[2018-07-31] MEDS: amLODIPine 10 MG TABLET PO SCH (08:22)
[2018-07-31] MEDS: ACETAMINOPHEN 325 MG TABLET PO PRN ×2 (08:23→14:27)
[2018-07-31] MEDS: SKIN HEALING OINT (AQUAPHOR) 50 GM TUBE TOP SCH (10:40)
[2018-07-31] MEDS: methylPREDNISolone SOD SUC 40 MG/1 ML VIAL IV SCH (10:46)
[2018-07-31] MEDS: traZODone 50 MG TABLET PO SCH (22:03)
[2018-07-31] MEDS: OLANZapine 5 MG TABLET PO SCH (22:04)
[2018-08-01] MEDS: VANCOMYCIN INJ 750 MG in SODIUM CHLORIDE 0.9% 250 ML IV SCH (00:32)
[2018-08-01] MEDS: ALBUTEROL/IPRATROPIUM 3 ML NEB RESP TX SCH ×4 (00:35→19:29)
[2018-08-01] MEDS: MEROPENEM 500 MG in SODIUM CHLORIDE 0.9% 100 ML IV SCH ×3 (03:49→17:59)
[2018-08-01] MEDS: ENOXAPARIN 30 MG/0.3 ML SYRINGE SUBCUT SCH (06:15)
[2018-08-01 08:51] LABS: Basophils # 0.1 10*3/uL (0.0-0.2); Basophils % 0.2 % (0.0-0.8); Eosinophils # 0.2 10*3/uL (0.0-0.87); Eosinophils % 0.8 % (0.00-10.9); Hematocrit 35.3 VOL% (35.7-47.0); Hemoglobin 11.3 GM/DL (12.0-16.0); Immature Granulocytes % 2.4 %; Immature Granulocytes Absolute 0.61 #; Lymphocytes # 1.7 10*3/uL (1.4-4.0); Lymphocytes % 6.7 % (21.3-54.2); Mean Corpuscular Hemoglobin 31 PG (27-34); Mean Corpuscular Volume 96.2 FL (87-102); Monocytes # 1.2 10*3/uL (0.11-0.8); Monocytes % 4.8 % (1.7-12.7); Neutrophils # 21.7 10*3/uL (1.4-7.4); Neutrophils % 85.1 % (38.7-73.9); Platelet Count 230 T/CUMM (130-400); Red Blood Count 3.67 MC/CUMM (3.8-5.5); Red Cell Distribution Width 15.6 % (9.3-17.3); White Blood Count 25.5 T/CUMM (4-12)
[2018-08-01 09:03] LABS: Calcium 8.5 MG/DL (8.5-10.1); Osmolality,Calculated 285.4 MOS/KG (273-304); Potassium 3.9 MMOL/L (3.5-5.1)
[2018-08-01] MEDS: SKIN HEALING OINT (AQUAPHOR) 50 GM TUBE TOP SCH (09:20)
[2018-08-01] MEDS: amLODIPine 10 MG TABLET PO SCH (09:20)
[2018-08-01] MEDS: DIGOXIN 0.125 MG TABLET PO SCH (09:20)
[2018-08-01] MEDS: acetaZOLAMIDE 250 MG TABLET PO SCH ×2 (09:20→22:18)
[2018-08-01] MEDS: CARVEDILOL 12.5 MG TABLET PO SCH ×2 (09:20→21:12)
[2018-08-01] MEDS: MAGNESIUM CHLORIDE 64 MG TABLET PO SCH ×2 (09:21→21:12)
[2018-08-01] MEDS: OXcarbazepine 300 MG TABLET PO SCH ×2 (09:21→21:12)
[2018-08-01 09:24] LABS: Band Neutrophils 2 % (0-10); Lymphocytes 9 % (20-55); Platelet Estimate Normal; Segmented Neutrophils 88 % (50-85); Total Cells Counted 100
[2018-08-01 09:25] LABS: Anisocytosis 1+
[2018-08-01] MEDS: methylPREDNISolone SOD SUC 40 MG/1 ML VIAL IV SCH (10:41)
[2018-08-01] MEDS ORDERED: NALOXONE 0.4 MG/ML VIAL IV ONE (13:31)
[2018-08-01] MEDS ORDERED: SODIUM CHLORIDE 0.9% 500 ML IV ONE (13:31)
[2018-08-01] MEDS: OLANZapine 5 MG TABLET PO SCH (21:12)
[2018-08-01] MEDS: traZODone 50 MG TABLET PO SCH (21:12)
[2018-08-02] MEDS: ALBUTEROL/IPRATROPIUM 3 ML NEB RESP TX SCH ×4 (00:38→20:00)
[2018-08-02] MEDS: MEROPENEM 500 MG in SODIUM CHLORIDE 0.9% 100 ML IV SCH ×3 (02:55→18:26)
[2018-08-02] MEDS: DEXTROSE 5% 1,000 ML IV SCH (02:55)
[2018-08-02 03:54] LABS: Allen Test Positive
[2018-08-02 03:55] LABS: ABG Base Excess -1.3 MMOL/L (-2.5-2.5); ABG HCO3 23.3 MMOL/L (20-26); ABG Oxygen Saturation 96.8 % (95-100); ABG PCO2 42.1 MM HG (35-48); ABG PH 7.366 (7.35-7.45); ABG PO2 92.6 MM HG (80-95); ABG TCO2 21.3 MMOL/L (23-27)
[2018-08-02] MEDS: LABETALOL 20 MG/4 ML SYRINGE IV PRN (04:21)
[2018-08-02 04:48] LABS: Calcium 8.8 MG/DL (8.5-10.1)
[2018-08-02] MEDS: ENOXAPARIN 30 MG/0.3 ML SYRINGE SUBCUT SCH (06:34)
[2018-08-02 07:19] LABS: Basophils # 0.1 10*3/uL (0.0-0.2); Basophils % 0.2 % (0.0-0.8); Eosinophils # 0.1 10*3/uL (0.0-0.87); Eosinophils % 0.3 % (0.00-10.9); Hematocrit 41.4 VOL% (35.7-47.0); Hemoglobin 13.4 GM/DL (12.0-16.0); Lymphocytes # 1.3 10*3/uL (1.4-4.0); Lymphocytes % 5.3 % (21.3-54.2); Mean Corpuscular HGB Conc 32.4 GM/DL (32-36); Mean Corpuscular Hemoglobin 31 PG (27-34); Mean Corpuscular Volume 96.1 FL (87-102); Mean Platelet Volume 12.5 FL (9.6-12.0); Monocytes # 0.9 10*3/uL (0.11-0.8); Monocytes % 3.6 % (1.7-12.7); Neutrophils # 22.1 10*3/uL (1.4-7.4); Neutrophils % 88.6 % (38.7-73.9); Platelet Count 316 T/CUMM (130-400); Red Blood Count 4.31 MC/CUMM (3.8-5.5); Red Cell Distribution Width 15.6 % (9.3-17.3)
[2018-08-02 07:56] LABS: Band Neutrophils 4 % (0-10); Lymphocytes 9 % (20-55); Platelet Estimate Normal; Segmented Neutrophils 83 % (50-85); Total Cells Counted 100
[2018-08-02] MEDS: DIGOXIN 0.125 MG TABLET PO SCH (08:45)
[2018-08-02] MEDS: MAGNESIUM CHLORIDE 64 MG TABLET PO SCH ×2 (08:45→21:30)
[2018-08-02] MEDS: OXcarbazepine 300 MG TABLET PO SCH ×2 (08:46→21:30)
[2018-08-02] MEDS: CARVEDILOL 12.5 MG TABLET PO SCH ×2 (08:47→21:30)
[2018-08-02] MEDS: amLODIPine 10 MG TABLET PO SCH (08:47)
[2018-08-02] MEDS: SKIN HEALING OINT (AQUAPHOR) 50 GM TUBE TOP SCH (08:48)
[2018-08-02] MEDS: methylPREDNISolone SOD SUC 40 MG/1 ML VIAL IV SCH (09:33)
[2018-08-02] MEDS: acetaZOLAMIDE 250 MG TABLET PO SCH ×2 (10:09→21:35)
[2018-08-02] MEDS: traZODone 50 MG TABLET PO SCH (21:30)
[2018-08-02] MEDS: OLANZapine 5 MG TABLET PO SCH (21:30)
[2018-08-03] MEDS: ALBUTEROL/IPRATROPIUM 3 ML NEB RESP TX SCH ×3 (01:57→14:00)
[2018-08-03 04:59] LABS: Calcium 8.7 MG/DL (8.5-10.1); Osmolality,Calculated 285.3 MOS/KG (273-304); Potassium 3.7 MMOL/L (3.5-5.1)
[2018-08-03 05:27] LABS: Basophils % 0.2 % (0.0-0.8); Eosinophils # 0.2 10*3/uL (0.0-0.87); Eosinophils % 0.7 % (0.00-10.9); Hematocrit 33.5 VOL% (35.7-47.0); Hemoglobin 10.9 GM/DL (12.0-16.0); Immature Granulocytes % 1.4 %; Immature Granulocytes Absolute 0.31 #; Lymphocytes # 1.4 10*3/uL (1.4-4.0); Lymphocytes % 6.1 % (21.3-54.2); Mean Corpuscular HGB Conc 32.5 GM/DL (32-36); Mean Corpuscular Hemoglobin 31 PG (27-34); Mean Corpuscular Volume 94.4 FL (87-102); Mean Platelet Volume 11.4 FL (9.6-12.0); Monocytes # 1.1 10*3/uL (0.11-0.8); Monocytes % 4.9 % (1.7-12.7); Neutrophils # 19.4 10*3/uL (1.4-7.4); Neutrophils % 86.7 % (38.7-73.9); Platelet Count 388 T/CUMM (130-400); Red Blood Count 3.55 MC/CUMM (3.8-5.5); Red Cell Distribution Width 15.3 % (9.3-17.3); White Blood Count 22.4 T/CUMM (4-12)
[2018-08-03] MEDS: ENOXAPARIN 30 MG/0.3 ML SYRINGE SUBCUT SCH (05:48)
[2018-08-03 05:52] LABS: Hypochromasia 1+; Ovalocytes Slight; Platelet Estimate Adequate
[2018-08-03] MEDS ORDERED: predniSONE 20 MG TABLET PO SCH (09:00)
[2018-08-03] MEDS ORDERED: predniSONE 10 MG TABLET PO SCH (10:16)
[2018-08-03] MEDS: acetaZOLAMIDE 250 MG TABLET PO SCH (11:50)
[2018-08-03] MEDS: CARVEDILOL 12.5 MG TABLET PO SCH (11:50)
[2018-08-03] MEDS: SKIN HEALING OINT (AQUAPHOR) 50 GM TUBE TOP SCH (11:50)
[2018-08-03] MEDS: amLODIPine 10 MG TABLET PO SCH (11:51)
[2018-08-03] MEDS: DIGOXIN 0.125 MG TABLET PO SCH (11:51)
[2018-08-03] MEDS: MAGNESIUM CHLORIDE 64 MG TABLET PO SCH (11:52)
[2018-08-03] MEDS: OXcarbazepine 300 MG TABLET PO SCH (11:52)
[2018-08-03] MEDS: ACETAMINOPHEN 325 MG TABLET PO PRN (15:32)
[2018-08-03 16:46] VITALS: BP 175/72
== END 2018-08-03 17:00 | DRG 193 ==
LOC: EDUNIT# → EDBD → N.ED 01:49 → N.EDINP 04:53 → SUATTDRO 04:53 → N.CC 05:50 → N.TELEN 07-27 10:25
PROVIDERS: ADMIT Internal Medicine; ATTEND Internal Medicine